=== PATIENT | female | born 1995 | race Two or more races ===

== ENCOUNTER 2020-05-24 17:23 | Outpatient (REF) | payer OTHER, SELFPAY | END 2020-05-24 17:24 | disposition home or self-care (01) | LOC: HO.LAB 17:23 | PROVIDERS: Visit Provider Internal Medicine | DX: Z20.828 Contact with and (suspected) exposure to other viral communicable diseases (principal) | CPT/HCPCS: U0003 ==

== ENCOUNTER 2020-07-06 07:21 | Outpatient (REF) | payer OTHER, SELFPAY | END 2020-07-06 07:22 | disposition home or self-care (01) | LOC: HO.LAB 07:21 | PROVIDERS: Visit Provider Internal Medicine | DX: Z20.828 Contact with and (suspected) exposure to other viral communicable diseases (principal) | CPT/HCPCS: C9803; U0003 ==

== ENCOUNTER 2022-05-16 00:15 | Emergency (ER) | payer OTHER, SELFPAY ==
[2022-05-16 00:20] VITALS: BP 143/85; PULSE 86; RESP 18; TEMP 37; O2SAT 99; BMI 34.7
--- NOTE | 2022-05-16 00:25 | ED.ALLEREA ---
HPI - Allergic Reaction General Chief complaint: Allergic Reaction Stated complaint: allergic reaction Time Seen by Provider: 05/16/22 00:19 Source: patient Mode of arrival: ambulatory Limitations: no limitations History of Present Illness HPI narrative: Patient allergic to shrimp had some food which had possible shunts in that after eating food at 18:00 patient felt itching tingling sensation in the throat watery eyes runny nose similar to that in the past no significant shortness of breath no lip or tongue swelling Related Data Previous Rx's Medication Instructions Recorded diphenhydramine HCl 25 mg capsule 25 mg PO Q6-8H PRN allergic 05/16/22 (Benadryl) reaction #30 caps Allergies Allergy/AdvReac Type Severity Reaction Status Date / Time shrimp Allergy Anaphylaxis Verified 05/16/22 00:20 Review of Systems Review of Systems: Yes all other systems are reviewed and are negative [facility] Social History Social History Advance Directives: No Advance Directives Information Provided: No Physical Exam ED Vital Signs: Vital Signs - 24 hr 05/16/22 00:20 05/16/22 01:51 05/16/22 02:05 Temperature 98.6 F 98.3 F Pulse Rate 86 69 69 Respiratory Rate 18 18 18 Blood Pressure 143/85 H 117/81 117/81 Pulse Oximetry 99 100 100 Oxygen Delivery Method Room Air Room Air Room Air BMI result Body Mass Index 34.7 Appearance: Alert. Oriented X3. No acute distress. Eyes: PERRLA, No Nystagmus watery eyes ENT: Pharynx normal. Oral Mucosa moist rhinorrhea tongue and uvula and lips normal Neck: Normal inspection. Neck supple. No stridor CVS: Normal heart rate and rhythm. Pulses normal. Respiratory: No respiratory distress. Equal air entry bilateral, no wheezing/rales/rhonchi Abdomen: Soft and nontender. Bowel sounds are present, no mass palpable, no CVA tenderness Skin: Skin warm and dry. Normal skin color. Normal skin turgor. Extremities: No lower extremity edema. No calf tenderness Neuro: Oriented X 3. No motor deficit. MDM - Allergic Reaction MDM Narrative Medical decision making narrative: Patient responded to p.o. Decadron Pepcid and Benadryl feeling much better will discharge patient home on Benadryl Discharge Plan Discharge Clinical Impression: Allergic reaction Patient Disposition: Home, Self-Care Instructions: Food Allergy (ED) Additional Instructions: Take Benadryl 1-2 tablets every 6 hours as needed Report to the ER if recurrence of the symptoms or shortness of breath Prescriptions: New diphenhydramine HCl [Benadryl] 25 mg capsule 25 mg PO Q6-8H PRN (Reason: allergic reaction) Qty: 30 0RF Stand Alone Forms: Work/School Release Interventions: ED Discharge Assessment Last Done: 05/16/22 02:34 Discharge Date/Time: 05/16/22 02:15
[2022-05-16] MEDS: Famotidine 20 MG TABLET PO (00:27)
[2022-05-16] MEDS: dexAMETHasone 2 MG TABLET 10 MG PO (00:27)
[2022-05-16] MEDS: diphenhydrAMINE HCL 25 MG CAPSULE 50 MG PO (00:30)
--- NOTE | 2022-05-16 00:31 | PC.NURSE ---
Pt brought back to ED bed 22 immediately upon arrival per build engineer recommendation. Pt noted to be ambulating independently with even and steady gait, conversing in full and complete sentences. This RN, charge account authorizer and Anwer to bedside for primary evaluation. Pt's airway noted to be patent and VSS. Pt aware of and agreeable to PO medication with call valladares in reach
[2022-05-16 01:51] VITALS: BP 117/81; PULSE 69; RESP 18; TEMP 36.8; O2SAT 100
[2022-05-16 02:05] VITALS: BP 117/81; PULSE 69; RESP 18; O2SAT 100
== END 2022-05-16 02:15 | disposition home or self-care (01) ==
PROVIDERS: Emergency Provider Internal Medicine
DX: T78.40XA Allergy, unspecified, initial encounter (principal); L29.9 Pruritus, unspecified; X58.XXXA Exposure to other specified factors, initial encounter
CPT/HCPCS: 99283; J8540

== ENCOUNTER 2023-08-01 14:49 | Emergency (ER) | payer MEDICAID, SELFPAY ==
[2023-08-01 15:50] VITALS: BP 122/77; PULSE 97; RESP 18; TEMP 37; O2SAT 99; BMI 35.8
--- NOTE | 2023-08-01 15:53 | ED.URI ---
HPI - URI/Sore Throat General Chief Complaint: Upper Respiratory Symptoms Stated Complaint: sore throat Time Seen by Provider: 08/01/23 17:09 Source: patient Mode of arrival: ambulatory Limitations: no limitations History of Present Illness HPI Narrative: 27-year-old female previously healthy who had URI symptoms 2 weeks ago now with persistent right ear pain and sore throat. No fevers, chills, hearing loss, ear drainage. Related Data Previous Rx's Medication Instructions Recorded diphenhydramine HCl 25 mg capsule 25 mg PO Q6-8H PRN allergic 05/16/22 (Benadryl) reaction #30 caps acetaminophen 325 mg tablet 650 mg (2 x 325 mg) PO Q4H PRN 08/01/23 (Tylenol) fever or pain #30 tabs cetirizine 10 mg tablet 10 mg PO DAILY PRN allergy 08/01/23 symptoms #30 tabs fluticasone propionate 50 2 spray intranasal DAILY #16 grams 08/01/23 mcg/actuation nasal spray,suspension (Flonase Allergy Relief) Allergies Allergy/AdvReac Type Severity Reaction Status Date / Time shrimp Allergy Anaphylaxis Verified 08/01/23 15:50 Review of Systems Review of Systems: Yes all other systems are reviewed and are negative Constitutional: Constitutional: Reports no additional constitutional complaints, Denies body ache(s), Denies chills, Denies fever(s), Denies headache(s) and Denies weakness Eyes: Eyes: Reports no additional eye complaints and Denies change in vision ENT: Reports system reviewed and no additional complaints, except as documented, Denies dizziness, Reports otalgia, Denies headache(s), Denies nasal congestion, Denies nasal discharge and Denies neck pain Cardiovascular: Cardiovascular: Reports no additional cardiovascular complaints, Denies chest pain, Denies leg edema and Denies dyspnea Respiratory: Respiratory: Reports no additional respiratory complaints, Denies cough and Denies dyspnea Gastrointestinal: Gastrointestinal: Reports no additional gastrointestinal complaints, Denies abdominal pain, Denies diarrhea, Denies nausea and Denies vomiting Genitourinary: Genitourinary: Reports no additional female genitourinary complaints and Denies urinary incontinence Musculoskeletal: Musculoskeletal: Reports no additional musculoskeletal complaints, Denies back pain, Denies arthralgias, Denies joint swelling, Denies neck pain, Denies numbness and Denies tingling Integumentary/Breasts: Skin/Breast: Reports system reviewed and no additional complaints, except as docu and Denies rash Neurologic: Reports system reviewed and no additional complaints, except as documented, Denies Abnormal speech present, Denies dizziness, Denies headache(s), Denies numbness, Denies tingling and Denies weakness PMFSH Past Medical History Attestation statement: The following information was validated with the patient. Source: old records reviewed and nursing notes reviewed Onset Date is defined in the Problem List Problems that require an onset date and time if occurred within 24 hrs of arrival to the ED Aortic Dissection and Rupture; Neurologic impairment; Cardiopulmonary Arrest; Endotracheal Intubation; Insertion or Replacement of Mechanical Circulatory Assist Device Social History Social History Advance Directives: No Advance Directives Information Provided: No Physical Exam Vital Signs: Vital Signs: Last Vital Signs Temp 98.6 F 08/01/23 15:50 Pulse 97 08/01/23 15:50 Resp 18 08/01/23 15:50 BP 122/77 08/01/23 15:50 Pulse Ox 99 08/01/23 15:50 O2 Del Method Room Air 08/01/23 15:50 BMI result Body Mass Index 35.8 Const: General: cooperative, healthy appearing, comfortable and no acute distress Orientation/consciousness: patient oriented x3 Limitations: no limitations HEENT: Head: Yes normal to inspection Ears: hearing grossly normal bilaterally, TM normal on the left, EAC's normal, mastoids normal, no periauricular adenopathy and TM abnormal wth effusion (R TM-effusion) General nose exam: Normal external nose present Face and sinus: Yes normal facial exam Mouth: Normal oral and palatal mucosa present Throat: Yes posterior oropharynx normal, Yes tonsils normal and Yes uvula midline Eyes: General: appearance normal, both eyes and all related structures Pupils: Equal, round and reactive pupils present Neck: Neck: Yes normal visual inspection, Yes full ROM, Yes no lymphadenopathy and Yes no meningeal signs Chest: Chest palpation & inspection: normal inspection of the chest Resp: Effort & Inspection: normal respiratory effort Auscultation: clear to auscultation bilaterally Cardio: Rate: regular rate Rhythm: regular rhythm Peripheral pulses: Peripheral pulses 2+ throughout GI: Inspection: Yes normal to inspection Palpation (GI): Soft to palpation and nontender Auscultation: normal bowel sounds Back/Spine/Pelvis: Thoracic/Lumbar Spine: thoracic and lumbar spine normal to inspection Skin: General skin exam: no rashes or lesions noted Neuro: General: patient oriented x3, no meningeal signs, no focal motor deficits and normal sensation to monofilament Cranial nerves: Yes Equal, round and reactive pupils present Cognition (Neuro): normal cognition Speech: No Abnormal speech present Gait exam (Neuro): Normal gait present Motor exam (neuro): 5/5 motor strength present throughout Extrem: General: Yes normal to inspection Course Course Course Narrative: This is a rapid medical exam. Defer additional HPI, ROS, PE to primary provider. 27 yo female here with complaints of sore throat, right ear pain after URI symptoms 2 weeks ago. Will send strep, viral testing VSS Medical Decision Making Medical Decision Making MDM Narrative: 27-year-old female previously healthy who had URI symptoms 2 weeks ago now with persistent right ear pain and sore throat. No fevers, chills, hearing loss, ear drainag Right TM effusion. No evidence of AOM. Will send testing for strep, flu, COVID, RSV Likely viral Differential Diagnosis Differential Diagnoses: The differential diagnosis associated with the presentation includes AOM, otitis externa, ear effusion viral syndrome Low concern for mastoiditis, malignant otitis externa Admission/Observation Consideration of admission/observation: Escalation of care including admission/observation considered Low concern for mastoiditis, malignant otitis externa require advanced imaging, urgent ENT consultation and/or admission Lab Data [facility] Lab Attestation statement: I reviewed the patient's lab results. Negative Labs: Lab Results 08/01/23 08/01/23 Range/Units 16:07 16:08 Influenza Type A (PCR) NEGATIVE (Negative) Influenza Type B (PCR) NEGATIVE (Negative) RSV RNA Qual (PCR) NEGATIVE (Negative) SARS-CoV-2 RNA (RT-PCR) NEGATIVE (Negative) S. pyogenes GrpA SUZIE Negative (Negative) Tests considered The following testing was considered but not selected: low concern for mastoiditis, malignant otitis externa require advanced imaging Prescription Management I considered prescription management with: Antibiotic Discharge Plan Discharge Clinical Impression: Viral infection, Acute effusion of right ear Patient Disposition: Home, Self-Care Instructions: Viral Syndrome (ED) Additional Instructions: Testing for strep, flu, COVID, RSV are negative Take medications as prescribed Increase fluids, rest Prescriptions: New cetirizine 10 mg tablet 10 mg PO DAILY PRN (Reason: allergy symptoms) Qty: 30 0RF fluticasone propionate [Flonase Allergy Relief] 50 mcg/actuation spray,suspension 2 spray intranasal DAILY Qty: 16 0RF Rx Instructions: administer into each nostril acetaminophen [Tylenol] 325 mg tablet 650 mg PO Q4H PRN (Reason: fever or pain) Qty: 30 0RF No Action diphenhydramine HCl [Benadryl] 25 mg capsule 25 mg PO Q6-8H PRN (Reason: allergic reaction) Qty: 30 0RF Referrals: Physician,None [Primary Care Provider] - 1 week Stand Alone Forms: Work/School Release Interventions: ED Discharge Assessment Last Done: 08/01/23 17:23 Discharge Date/Time: 08/01/23 17:23
== END 2023-08-01 17:23 | disposition home or self-care (01) ==
PROVIDERS: Emergency Provider Emergency Medicine
DX: B34.9 Viral infection, unspecified (principal); H92.11 Otorrhea, right ear; Z20.822 Contact with and (suspected) exposure to COVID-19; Z20.828 Contact with and (suspected) exposure to other viral communicable diseases
CPT/HCPCS: 0241U; 87651; 99282; 99283

== ENCOUNTER 2024-01-22 17:38 | Emergency (ER) | payer MEDICAID, SELFPAY ==
--- NOTE | ~2024-01-22 | XR_ITS ---
Examination: XR foot LT min 3V, XR ankle LT min 3V Indication: Injury Comparison: No pertinent prior studies are currently available for comparison. Technique: 3 plain film views of the left ankle and 3 plain film views of the left foot obtained Findings: No significant soft tissue swelling about the ankle or within the foot. Bones are in normal anatomic alignment with no acute fracture or dislocation. Mortise appears intact. No significant ankle joint effusion. No radiopaque foreign body or soft tissue gas. No bony destructive lesions or erosions. XR/XR foot LT min 3V Impression: No acute bony abnormality.
--- NOTE | ~2024-01-22 | XR_ITS ---
Examination: XR foot LT min 3V, XR ankle LT min 3V Indication: Injury Comparison: No pertinent prior studies are currently available for comparison. Technique: 3 plain film views of the left ankle and 3 plain film views of the left foot obtained Findings: No significant soft tissue swelling about the ankle or within the foot. Bones are in normal anatomic alignment with no acute fracture or dislocation. Mortise appears intact. No significant ankle joint effusion. No radiopaque foreign body or soft tissue gas. No bony destructive lesions or erosions. XR/XR ankle LT min 3V Impression: No acute bony abnormality.
[2024-01-22 17:48] VITALS: BP 133/76; PULSE 101; RESP 17; TEMP 36.2; O2SAT 100; BMI 36.9
--- NOTE | 2024-01-22 17:50 | ED_ITS ---
HPI - General Adult General Chief complaint: Extremity Injury, Lower Stated complaint: ROLLED ANKLE Time Seen by Provider: 01/22/24 18:09 Source: patient Mode of arrival: ambulatory History of Present Illness ED Provider: Celia PETIT HPI narrative: This is a 28-year-old female presenting with concerns left foot and ankle pain status post rolling her ankle yesterday, patient reports she got up, her foot was asleep, she rolled her ankle since then has been having pain, swelling. Pain is worse with movement and weight-bearing better at rest. When it happened she heard a crack. Denies associated numbness or tingling. Denies previous injuries to left ankle and foot. Reports she was drinking when this happened. Patient denies fevers, chills. No blunt trauma. Related Data Previous Rx's ?Medication ?Instructions ?Recorded diphenhydramine HCl 25 mg capsule 25 mg PO Q6-8H PRN allergic 05/16/22 (Benadryl) reaction #30 caps acetaminophen 325 mg tablet 650 mg (2 x 325 mg) PO Q4H PRN 08/01/23 (Tylenol) fever or pain #30 tabs cetirizine 10 mg tablet 10 mg PO DAILY PRN allergy 08/01/23 symptoms #30 tabs fluticasone propionate 50 2 spray intranasal DAILY #16 grams 08/01/23 mcg/actuation nasal spray,suspension (Flonase Allergy Relief) ketorolac 10 mg tablet 10 mg PO TID PRN pain 5 days #15 01/22/24 tabs Allergies Allergy/AdvReac Type Severity Reaction Status Date / Time shrimp Allergy Anaphylaxis Verified 01/22/24 17:51 Review of Systems Review of Systems: Yes all other systems are reviewed and are negative [facility] Past Medical History Attestation statement: The following information was validated with the patient. Source: old records reviewed and nursing notes reviewed Social History Social History Advance Directives: No Advance Directives Information Provided: No Do you have a plan to hurt others: No Plan Physical Exam ED Vital Signs: Vital Signs - 24 hr 01/22/24 17:48 Temperature 97.1 F Pulse Rate 101 H Respiratory Rate 17 Blood Pressure 133/76 Pulse Oximetry 100 Oxygen Delivery Method Room Air BMI result Body Mass Index 36.9 vss Appearance: Alert.? Oriented X3.? No acute distress.? Head: Normocephalic, atraumatic, no step-offs or deformities Eyes: Pupils equal, round and reactive to light.? CVS: Normal heart rate and rhythm.? Pulses normal.? Respiratory: No respiratory distress.? Breath sounds normal.? Abdomen: Soft and nontender.? Skin: Skin warm and dry.? Normal skin color.? Normal skin turgor.? Extremities: No lower extremity edema.? No calf ttp. 5/5 strength to bilateral upper and lower extremities 2+ Dp,at,pt pulses equal and b/l. No foot drop b/l. normal sensation distally b/l + ttp to left 5th metatarsal Back: No midline tenderness, no C-spine tenderness, full range of motion, no CVA tenderness bilaterally Neuro: Oriented X 3.? No motor deficit.? No sensory deficit. CN 2-12 intact Course Course Course Narrative: RME performed by Mary Rahman PA-C. Patient is a 28 year old assigned female at presenting to the emergency department with left ankle pain after rolling it. Detailed physical exam and review of systems are deferred to the home health clinician. Imaging ordered. Patient placed back in the waiting room pending room availability and results. Reevaluation(s) Reevaluation #1: Imaging pending patient requesting something for nausea she says when she gets severe pain she gets nauseous. Time: 18:25 Medical Decision Making Medical Decision Making [facility] Narrative: 28-year-old female presents with left ankle/foot pain status post rolling ankle yesterday. Physical exam significant for 5/5 strength to bilateral upper and lower extremities 2+ Dp,at,pt pulses equal and b/l. No foot drop b/l. normal sensation distally b/l + ttp to 5th metatarsal History and physical exam concerning for sprain versus strain versus fracture versus dislocation. No signs of neurovascular compromise, threat to limb. No signs of compartment syndrome. No other injury sustained from this. No signs of trauma to head, neck, chest, abdomen pelvis. Plan imaging of left ankle and foot Differential Diagnosis Differential Diagnoses: The differential diagnosis associated with the presentation includes History and physical exam concerning for sprain versus strain versus fracture versus dislocation. No signs of neurovascular compromise, threat to limb. No signs of compartment syndrome. No other injury sustained from this. No signs of trauma to head, neck, chest, abdomen pelvis. Admission/Observation Consideration of admission/observation: Escalation of care including admission/observation considered No indication Independent Interpretation I performed an independent interpretation of an: Plain X-Ray Radiology Impression Discussion of test interpretation with radiology: I have reviewed the radiologist's reading. Critical Care Time Critical Care Time Critical Care Time: No Discharge Plan Discharge Clinical Impression: Ankle sprain and strain, Acute foot pain Patient Disposition: Home, Self-Care Instructions: Arthralgia (ED), R.I.C.E. Treatment (ED), Ice Pack Application (ED), Ankle Strain (ED) Additional Instructions: Take your medications as prescribed. If you were prescribed antibiotics today, it is important that you take your medication to their entirety, do not skip any doses, do not finish them early. Follow-up with your primary care provider this week. Return to the emergency department with new or worsening symptoms. Such as fevers, chills, chest pain, shortness of breath, nausea, vomiting, dizziness, headache, vision changes, lethargy In case of emergency call 911 Follow-up with the orthopedic team within a week. Toradol has been sent to your pharmacy, you tolerated this well in the department. Please take this as prescribed do not take this with ibuprofen, or other NSAIDs, do not mix this with alcohol. Side effects of this medication including increased risk for bleeding and possible kidney injury. Prescriptions: New ketorolac 10 mg tablet 10 mg PO TID PRN (Reason: pain) 5 Days Qty: 15 0RF No Action diphenhydramine HCl [Benadryl] 25 mg capsule 25 mg PO Q6-8H PRN (Reason: allergic reaction) Qty: 30 0RF cetirizine 10 mg tablet 10 mg PO DAILY PRN (Reason: allergy symptoms) Qty: 30 0RF fluticasone propionate [Flonase Allergy Relief] 50 mcg/actuation spray,suspension 2 spray intranasal DAILY Qty: 16 0RF Rx Instructions: administer into each nostril acetaminophen [Tylenol] 325 mg tablet 650 mg PO Q4H PRN (Reason: fever or pain) Qty: 30 0RF Referrals: [facility] [Provider Group] - 1 week Print Language: Citizen [place]
[2024-01-22] MEDS: Ketorolac Tromethamine 30 MG/ML VIAL IM (18:25)
--- NOTE | 2024-01-22 18:28 | PC.NURSE ---
Pt brought to [facility] for treatment, assumed care of pt at this time. A&Ox3 skin pwd respirations even unlabored, endorsing left foot pain after standing up on it wrong around 0100. Pt states she was sitting and drinking with cousin when left leg fell asleep, when she went to stand she couldn't feel that she stood funny and hurt left foot. +csm. Medicated per MAR for pain. Awaiting imaging results, aware of plan of care.
[2024-01-22] MEDS: Ondansetron ODT 4 MG TAB.RAPDIS TRANSLINGU (19:08)
[2024-01-22 20:11] VITALS: BP 113/76; PULSE 80; RESP 18; TEMP 36.4; O2SAT 100
[2024-01-22 20:26] VITALS: BP 113/76; PULSE 80; RESP 18; TEMP 36.4; O2SAT 100
== END 2024-01-22 20:30 | disposition home or self-care (01) ==
PROVIDERS: Emergency Provider Emergency Medicine
DX: S93.402A Sprain of unspecified ligament of left ankle, initial encounter (principal); M25.572 Pain in left ankle and joints of left foot; M79.672 Pain in left foot; X50.1XXA Overexertion from prolonged static or awkward postures, initial encounter; Y93.9 Activity, unspecified; Y92.9 Unspecified place or not applicable; Y99.8 Other external cause status
CPT/HCPCS: 73610; 73630; 96372; 99284; J1885